=== PATIENT | female | born 1945 | race Caucasian/White ===

== ENCOUNTER 2018-11-27 10:35 | Emergency (ER) | payer MEDICARE, OTHER ==
[~2018-11-27] VITALS: Ht 147.3 cm; Wt 56.7 kg
[~2018-11-27 10:35] MED LIST: ALDACTAZIDE 251 EACH PO; ASPIRIN EC325 MG PO; CARVEDILOL25 MG PO; CRESTOR20 MG PO; ISOSORBIDE MONO30 MG PO; LEVOTHYROXINE75 MCG PO
[2018-11-27] MEDS ORDERED: ELIQUIS5 MG PO (15:06)
--- NOTE | 2018-11-29 07:49 | EKG ---
[facility] [address] [facility] [place] [address] Signed Normal sinus rhythm Rightward axis Left bundle branch block Abnormal ECG No previous ECGs available Confirmed by UMESH BRO MD ([id number]) on 11/29/2018 7:49:27 AM Electronically Signed By: UMESH BRO MD 11/29/18 0749 PATIENT NAME: SAMIR PERES Electrocardiogram DATE OF : 41 PHYSICIAN: UMESH BRO MD REPORT #: [id number] REPORT IS CONFIDENTIAL AND NOT TO BE RELEASED WITHOUT AUTHORIZATION
== END 2018-11-27 15:39 | disposition home or self-care (01) ==
LOC: ED 10:35
DX: I26.99 Other pulmonary embolism without acute cor pulmonale (principal); I50.9 Heart failure, unspecified; Z87.891 Personal history of nicotine dependence; Z88.1 Allergy status to other antibiotic agents; Z88.8 Allergy status to other drugs, medicaments and biological substances; Z88.2 Allergy status to sulfonamides; Z88.5 Allergy status to narcotic agent; Z79.82 Long term (current) use of aspirin; Z79.899 Other long term (current) drug therapy
CPT/HCPCS: 71045; 71260; 80053; 84484; 85025; 85379; 86038; 86147; 93005; 93010; 99285-25; Q9967

== ENCOUNTER 2019-01-16 08:22 | Day surgery (SDC) | payer MEDICARE, OTHER ==
[~2019-01-16] VITALS: Ht 147.3 cm; Wt 57.6 kg
[~2019-01-16 08:22] MED LIST changes: +ADULT ASPIRIN81 MG PO; +ELIQUIS5 MG PO; +LEVOTHYROXINE100 MCG PO
[2019-01-16] MEDS ORDERED: CO Q-10200 MG PO (08:41)
[2019-01-16] MEDS ORDERED: MAGNESIUM500 MG PO (08:41)
[2019-01-16] MEDS ORDERED: CINNAMON500 MG PO (08:41)
[2019-01-16] MEDS ORDERED: ESTER-C 500 MG1 EACH PO (08:42)
[2019-01-16] MEDS ORDERED: MELATONIN3 MG PO (08:42)
[2019-01-16] MEDS ORDERED: ZINC50 M1 PO (08:43)
[2019-01-16] MEDS ORDERED: DIPHENHYDRAMINE25 M1 PO (08:43)
[2019-01-16] MEDS ORDERED: NITROSTAT0.4 MG SL (08:44)
[2019-01-16] MEDS ORDERED: OMEPRAZOLE20 MG PO (08:45)
[2019-01-16] MEDS ORDERED: CALCIUM + VITA1 EACH PO (08:45)
[2019-01-16] MEDS ORDERED: VITAMIN D2000 UNIT PO (08:45)
--- NOTE | 2019-01-16 10:46 | NUR ---
01/16/19 Gillian6 Steffanie Nash 1037-PATIENT ARRIVED TO PACU ON 4L NC PLACED ON 3L. PATIENT DROWSY EYES OPEN. DENIES PAIN OR NAUSEA. ABDOMEN SOFT. 1046-PATIENT AWAKE DROWSY DENIES PAIN OR NAUSEA. 3L NC RR EVEN ENCOURAGED DEEP BREATHING.
--- NOTE | 2019-01-17 06:17 | OR ---
[facility] [address] [place], [place] [address] Signed DATE OF OPERATION: 01/16/2019 SURGEON: Tanya Hilton MD PREOPERATIVE DIAGNOSIS: 1. Upper esophageal thickening. 2. Gastroesophageal reflux disease. 3. History of Helicobacter pylori x2. POSTOPERATIVE DIAGNOSES: 1. Mild punctate gastroduodenitis. 2. Small hiatal hernia. PROCEDURES PERFORMED: EGD with CLOtest and biopsies of the pyloric bulb and antrum. ESTIMATED BLOOD LOSS: None. INDICATIONS: Yamile is a 73-year-old female who went into our emergency room on November 27, 2018. She had a small pulmonary embolus with a clot in her left upper extremity. Consequently, she has been on aspirin and Eliquis. The CT scan showed some thickening in the upper esophagus. She is known to have acid reflux. She has had Helicobacter pylori at least twice in the past. She said once in a while, the acid reflux bothers her, but she does not have any esophageal dysphagia. She has been on omeprazole 20 mg p.o. b.i.d. She was asked to see me with respect to the above. In the office, I gave her a pamphlet on upper endoscopy. We looked at that together along with the risks including, but not limited to gas bloating, crampy abdominal pain, bleeding, perforation, requiring surgery, and missed diagnosis. We also left her on aspirin and Eliquis because of the recent left upper extremity DVT and pulmonary embolism. We also reviewed the need for IV conscious sedation. She had expressed understanding and wished to proceed. DESCRIPTION OF PROCEDURE: Yamile was taken into our endoscopy suite and placed in the supine semi-recumbent position. We held our usual lidocaine spray because she is allergic to Novocain and procaine. She was given 3 mg of Versed and 100 mcg of fentanyl to cover the case. A bite-block was utilized. The gastroscope was introduced and advanced quite readily out into the third portion of the duodenum under direct visualization of camera without Electronically Signed By: TANYA HILTON MD 01/17/19 0617 PATIENT NAME: YAMILE PERES OPERATIVE REPORT DATE OF : 41 REPORT #: [id number] PHYSICIAN: TANYA HILTON MD PCP: TIFFANI DOMINIQUE PA-C REPORT IS CONFIDENTIAL AND NOT TO BE RELEASED WITHOUT AUTHORIZATION [facility] [address] [place], [place] [address] Signed difficulty. Her pyloric channel showed a few small punctate erythematous changes as did the antrum. We went ahead and took a biopsy of the pyloric channel as well as the antrum. We then took a biopsy from the antrum for CLOtest. The incisura body and fundus of the stomach were unremarkable. Upon retroflexion of scope, she does have a small hiatal hernia. There were no ulcerations. No gastric or esophageal varices. The scope was withdrawn up to the area of the GE junction, which was compliant without stricture. She does have mild disruption to the Z-line. There was no Cantu's mucosa. We did not biopsy the Z-line on this occasion. The middle and upper esophagus were fine. We looked through the upper esophagus several times and had no sense of any thickening, inflammation, or other issues. The arytenoids and vocal cords were unremarkable. After this, the gas was suctioned out and the gastroscope removed. Yamile tolerated the procedure quite well. RECOMMENDATIONS: I will see Yamile back in my office in 7 to 14 days to review her results. Tanya Hilton MD ALB/MODL /[id number] cc: MD Dr. Tiffani Turner MD Copies: CAYDEN ROSS MD, ANDREW L MD ~ Electronically Signed By: TANYA HILTON MD 01/17/19 0617 PATIENT NAME: YAMILE PERES OPERATIVE REPORT DATE OF : 41 REPORT #: [id number] PHYSICIAN: TANYA HILTON MD PCP: TIFFANI DOMINIQUE PA-C REPORT IS CONFIDENTIAL AND NOT TO BE RELEASED WITHOUT AUTHORIZATION
== END 2019-01-16 11:45 | disposition home or self-care (01) ==
LOC: OPS 08:22 → DS 08:22 → OPS 09:45
PROVIDERS: Colon & Rectal Surgery
PROC: 0DB78ZX Excision of Stomach, Pylorus, Via Natural or Artificial Opening Endoscopic, Diagnostic (ICD-10-PCS; 2019-01-16)
PROC: 0DB98ZX Excision of Duodenum, Via Natural or Artificial Opening Endoscopic, Diagnostic (ICD-10-PCS; principal; 2019-01-16 09:45)
DX: K29.50 Unspecified chronic gastritis without bleeding (principal); K29.80 Duodenitis without bleeding; K21.9 Gastro-esophageal reflux disease without esophagitis; K44.9 Diaphragmatic hernia without obstruction or gangrene; I11.0 Hypertensive heart disease with heart failure; I50.9 Heart failure, unspecified; E03.9 Hypothyroidism, unspecified; Z86.711 Personal history of pulmonary embolism; Z86.19 Personal history of other infectious and parasitic diseases; Z98.890 Other specified postprocedural states; Z88.8 Allergy status to other drugs, medicaments and biological substances; Z88.4 Allergy status to anesthetic agent; Z88.2 Allergy status to sulfonamides; Z79.82 Long term (current) use of aspirin; Z79.899 Other long term (current) drug therapy
CPT/HCPCS: 86677; 88305; 88342; G0500; J2250; J3010; J7120